=== PATIENT | female | born 2000 | race Caucasian/White ===

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

== ENCOUNTER 2021-08-06 03:42 | Emergency (ER) | payer OTHER ==
[2021-08-06] MEDS ORDERED: Sodium Chloride 0.9% 10 ML Syringe FLUSH PRN (04:01)
[2021-08-06] MEDS ORDERED: Sodium Chloride 0.9% 2.5 ML Syringe FLUSH PRN (04:01)
[2021-08-06] MEDS ORDERED: Sodium Chloride 0.9% 1,000 ML IV ONE ×2 (04:02→04:03)
[2021-08-06] MEDS ORDERED: LORazepam 2 MG/ML SDV IVPUSH ONE (04:02)
[2021-08-06 04:38] LABS: BLOOD UREA NITROGEN,BUN 18 mg/dL (7.0-18.0); CARBON DIOXIDE,CO2 26.6 mmol/L (21.0-32.0); CHLORIDE,CL 99 mmol/L (98-107); GLUCOSE RANDOM 198 mg/dL (74-106); POTASSIUM,K 4.4 mmol/L (3.5-5.1); SODIUM,NA 139 mmol/L (136-145)
[2021-08-06 05:50] VITALS: BP 118/72; PULSE 102
== END 2021-08-06 05:51 | disposition home or self-care (01) ==
LOC: MW.ED 03:42
DX: T43.611A Poisoning by caffeine, accidental (unintentional), initial encounter (principal); E10.9 Type 1 diabetes mellitus without complications; Z88.2 Allergy status to sulfonamides; Z79.899 Other long term (current) drug therapy
CPT/HCPCS: 80053; 82009; 82803; 83735; 85025; 96374; 99284-25; J2060; J7030